=== PATIENT | female | born 1945 | race Caucasian/White ===

== ENCOUNTER → 2016-07-18 | Outpatient (CLI) | payer MEDICARE, BC, OTHER ==
[~2016-07-18] MED LIST: CELE200C PO; DULO20CA43 PO; FERR27TA PO; FOLI1POW MC; MAXIDE PO; OMEG1CAP97 PO; RANI150T9 PO; [UNRECOGNIZED DRUG - CODE] PO; [UNRECOGNIZED DRUG - CODE] PO
--- NOTE | 2016-07-18 16:42 | RADRPT ---
PROCEDURE: XR left knee. CLINICAL INDICATION: Knee pain. TECHNIQUE: AP weightbearing, lateral weightbearing and sunrise views are available for review. COMPARISON: 11/12/2013 FINDINGS: There is a total knee replacement. There is no evidence of loosening of the prosthesis. There is no evidence of hardware failure. The osseous structures are normal in mineralization, architecture and alignment No acute fracture or dislocation is seen.No osseous lesions are identified. The soft tiss ues are unremarkable . IMPRESSION: Unremarkable total knee replacement. RPTAT: HGDB .Mohinder Sharif MD, MD Date Time Electronically viewed and signed by .Mohinder Sharif MD, MD on 07/18/2016 16:42 .B/
--- NOTE | 2016-07-19 03:24 | HKNOTE ---
DATE OF SERVICE: 07/18/2016 MAIN COMPLAINT: Pain in the left knee. HISTORY OF MAIN COMPLAINT: The patient underwent a left total knee replacement in 2011. The surger y was performed by me. The patient states that the knee has "never been perfect." She has had some pain in the knee since the time of the surgery. There were no postoperative surgical complications . She was seen by me with her exact same complaints on 11/12/2013. I diagnosed pes bursitis of the left knee and symptoms suggestive of a lumbar radiculopathy. She was given a cortisone injection, and an MRI scan of the spine was ordered which she had done. There were findings on the MRI for whi ch she saw a pain management physician at the [facility]. The patient has had multiple lumbar epidural cortisone injections since then which have given her good improvem ent on some occasions and no improvement on other occasions. Note also that when she was seen at the 1-year point following knee replacement she complained of pa in in the left knee "which had been present for a month." She was "otherwise extremely pleased with the result of her surgery which gave [her] a perfect result until February of this year" [i.e. last month). She has had extensive physical therapy treatments for her back with indifferent results. She saw a construction specialist at the [facility] who told her that her sym ptoms and MRI findings were "not bad enough." She does not remember the name of the physician. PRESENT COMPLAINTS: The pain is over the medial aspect of the knee and radiates down from the knee to "the bottom of my foot." She gets numbness and tingling in the right upper thigh which does not radiate down the right leg to the foot. Her pain is aggravated by walking, running, and stair climbing. She sometimes also gets pain while "working out." The pain is intermittent and is not totally related to walking. She frequently gets the pain in the middle of the night, "and it's the same kind of pain." She is not able to walk mor e than 2 blocks at a time because of her chronic back problem. She does not use a walking aid. She does get rest pain. She takes Tylenol for the pain. She does not limp. She can clip her toenails and tie her shoelaces. PAST ORTHOPEDIC HISTORY: Left knee replacement in 2011. PRIOR CORTISONE INTAKE: Several cortisone injections as lumbar epidural injections and into the lef t knee prior to surgery. ALCOHOL INTAKE: Occasional. OTHER JOINT PROBLEMS: None. BLOOD TESTS FOR ARTHRITIS: None. PRIOR INJURIES TO HIPS OR KNEES: None. WORK STATUS: The patient is a retired teacher. PAST MEDICAL HISTORY: 1. Hepatitis as a child. Recently retested and now negative. 2. Hypothyroid, dyspeptic. PAST SURGICAL HISTORY: 1. Tonsillectomy. 2. Cysts on the ovaries. 3. Breast biopsy [benign.] 4. Bladder lift. 5. Tubal ligation. 6. Gallbladder removed. 7. Left knee arthroscopic surgery. 8. Hysterectomy. 9. Left knee replacement. ALLERGIES 1. SULFA. 2. PENICILLIN. MEDICATIONS: 1. Celebrex. 2. Magnesium. 3. Coenzyme Q10. 4. Myrbetriq. 5. Synthroid. 6. Maxzide. 7. Clindamycin. 8. Vitamin C. 9. Fish oil. 10. Zantac. 11. Bioflavonoid complex. PHYSICAL EXAMINATION: GENERAL: The patient is a fit-looking, youthful, 71-year-old female. VITAL SIGNS: Height 5 feet 8 inches, weight 210 pounds. Blood pressure 145/65, temperature 98.0. GAIT: The patient's gait is normal. She walks without a walking aid. LEFT KNEE: Short scar of previous knee replacement surgery. No external sign of infection or infla mmation. Extension is full and pain free. Flexion is full and pain free. Marked tenderness over t he pes bursa at 4 different points along the medial proximal tibia. NEUROLOGIC: Motor examination reveals no muscle deficit in the lower extremities. Deep tendon refle xes in the lower extremities: Right knee jerk plus, left knee jerk plus, right ankle jerk plus, lef t ankle jerk plus. Straight leg raising is negative bilaterally at 80 degrees. Lasegue and MINGO venkat ts are negative. HIPS: Both hips have a full range of motion without pain. IMAGING: Plain x-rays of the left knee obtained at the [facility] today [3 views ] show total knee replacement components that are well attached to the bone and well aligned. No singer ggestion of loosening, erosion, or any other problem. DIAGNOSES: 1. Pes bursitis of the left knee. 2. Status post left total knee replacement. 3. Symptoms of lumbar radiculopathy. MANAGEMENT: Under sterile conditions, the patient was given an injection of 10 mL of 2% lidocaine i nto the tender pes area. She was asked to walk around after that, and her pain in the knee was comp letely relieved. This was followed with a total of 40 mg of Kenalog into the affected area: The jose mckeon is being referred for an MRI scan of the lumbar spine. After I review them, I will give her a call. Dictated By: LUPIS BROWNE MD HH/NTS Conf#: [id number] DID#: [id number] CC: MERCEDES TOLLIVER MD;*End*
--- NOTE | 2016-07-19 03:24 | HKNOTE ---
DATE OF SERVICE: 07/18/2016 Dear Mickey, Our mutual patient, Laura Meza, was seen in my office today complaining of pain in her left knee. This is the same complaint she has had for some time, although it was not present immediately after her knee replacement surgery. DIAGNOSES: I made the diagnoses of 1. Pes bursitis of the left knee following total knee replacement but unrelated to it. 2. Lumbar radiculopathy. She is being referred for an MRI scan of her lumbar spine, and further treatment will depend upon th e findings. Enclosed is a copy of my office notes for your records. With warmest regards, Dictated By: LUPIS BROWNE MD HH/NTS Conf#: [id number] DID#: [id number] CC: MERCEDES TOLLIVER MD;*End*
== END | disposition home or self-care (01) ==
LOC: HKI 13:57
DX: M25.562 Pain in left knee (principal); Z96.652 Presence of left artificial knee joint
CPT/HCPCS: 73562; G0463

== ENCOUNTER → 2016-11-21 | Outpatient (CLI) | payer MEDICARE, BC ==
--- NOTE | 2016-11-22 11:42 | HKNOTE ---
DATE OF SERVICE: 11/21/2016 The patient is a 71-year-old female who is complaining of radicular symptoms in her right leg. I re ferred her to Dr. Colunga. Note, her MRI which is in the chart dated 07/26/2016. She did not like Dr Estrada Colunga, "he was too bossy". He subsequently injected 6 facet joints in the surgery center and she is more than 50% improved. She is going to go back and see him soon again. Meanwhile, the pes bursa, which I injected at her last visit was usually improved by my injection an d she would like to repeat injection. PHYSICAL EXAMINATION: Once again, pes bursitis of the left knee. MANAGEMENT: Under sterile conditions, given injection of 2 mL of Kenalog and 4 mL of 2% lidocaine i nto the pes bursa area and she will be seen again as necessary. Dictated By: LUPIS GORDON/TANG Conf#: [id number] DID#: [id number]
== END | disposition home or self-care (01) ==
LOC: HKI 09:24
DX: M70.52 Other bursitis of knee, left knee (principal); Y93.9 Activity, unspecified
CPT/HCPCS: 20610; G0463

== ENCOUNTER → 2017-08-12 | Outpatient (CLI) | END | disposition home or self-care (01) ==